=== PATIENT | female | born 1965 | race Caucasian/White ===

== ENCOUNTER 2018-06-12 14:33 | Inpatient (IN) ==
[2018-06-12] MEDS ORDERED: traMADol 50 MG TABLET PO PRN (14:50)
[2018-06-12] MEDS ORDERED: ACETAMINOPHEN 325 MG TABLET PO PRN (14:50)
[2018-06-12] MEDS ORDERED: ONDANSETRON 4 MG/2 ML VIAL IV PRN (14:50)
[2018-06-12] MEDS ORDERED: PROMETHAZINE 25 MG/1 ML VIAL IM PRN (14:50)
[2018-06-12] MEDS: PANTOPRAZOLE 40 MG VIAL IV SCH (17:28)
[2018-06-12] MEDS: DEXTROSE 5% NACL 0.9% 1,000 ML IV SCH (17:28)
[2018-06-12] MEDS: GABAPENTIN 300 MG CAPSULE PO SCH ×2 (18:17→22:13)
[2018-06-12] MEDS ORDERED: CLORAZEPATE 3.75 MG TABLET PO PRN (18:38)
[2018-06-12] MEDS ORDERED: Rizatriptan Benzoate [Maxalt] 10 MG PO PRN (18:38)
[2018-06-12 20:52] LABS: Apearance,Urine CLEAR (Clear); Bilirubin,Urine Negative (Negative); Blood, Urine Negative (Negative); Glucose,Urine (UA) Negative (Negative); Ketones,Urine 20 mg/dL (Negative); Nitrite,Urine Negative (Negative); Protein,Urine Negative; RBC,Urine 1 /HPF (0-4); Squamous Epithelial Cell,Urine Occasional /HPF (0-10); Urine Color Straw (Yellow); Urine Specific Gravity 1.004 (1.001-1.035); Urine Urobilinogen < 2.0 EU/DL (0.2-1.0); WBC,Urine <1 /HPF (0-6)
[2018-06-13] MEDS: DEXTROSE 5% NACL 0.9% 1,000 ML IV SCH ×4 (00:03→18:16)
[2018-06-13 06:03] LABS: Basophils % 0.2 % (0.0-0.8); Eosinophils # 0.1 10*3/uL (0.0-0.87); Eosinophils % 0.6 % (0.00-10.9); Hematocrit 35.2 VOL% (35.7-47.0); Hemoglobin 11.3 GM/DL (12.0-16.0); Immature Granulocytes % 0.6 %; Immature Granulocytes Absolute 0.05 #; Lymphocytes # 2.7 10*3/uL (1.4-4.0); Lymphocytes % 32.8 % (21.3-54.2); Mean Corpuscular HGB Conc 32.1 GM/DL (32-36); Mean Corpuscular Hemoglobin 28 PG (27-34); Mean Corpuscular Volume 88.4 FL (87-102); Mean Platelet Volume 10.1 FL (9.6-12.0); Monocytes # 0.9 10*3/uL (0.11-0.8); NRBC # 0.02 10*3/uL; Neutrophils # 4.4 10*3/uL (1.4-7.4); Neutrophils % 54.8 % (38.7-73.9); Platelet Count 250 T/CUMM (130-400); Red Blood Count 3.98 MC/CUMM (3.8-5.5); Red Cell Distribution Width 14.3 % (9.3-17.3); White Blood Count 8.1 T/CUMM (4-12)
[2018-06-13] MEDS: LEVOTHYROXINE 75 MCG TABLET PO SCH (06:18)
[2018-06-13 06:38] LABS: Alanine Aminotransferase 60 U/L (13-56); Albumin 2.4 G/DL (3.4-5.0); Alkaline Phosphatase 107 U/L (45-117); Aspartate Amino Transferase 41 U/L (0-37); Bilirubin,Direct < 0.100 MG/DL (0.0-0.20); Blood Urea Nitrogen 7 MG/DL (7-18); Calcium 7.1 MG/DL (8.5-10.1); Glucose 92 MG/DL (74-106); Osmolality,Calculated 285.7 MOS/KG (273-304); Potassium 3.4 MMOL/L (3.5-5.1); Sodium 145 MMOL/L (136-145); Total Protein 5.4 G/DL (6.4-8.3)
[2018-06-13] MEDS ORDERED: traMADol 50 MG TABLET PO PRN (08:15)
[2018-06-13] MEDS: PANTOPRAZOLE 40 MG VIAL IV SCH (08:33)
[2018-06-13] MEDS: ESTROGENS (CONJ) 0.625 MG TABLET PO SCH (08:33)
[2018-06-13] MEDS: CITALOPRAM 20 MG TABLET PO SCH (08:33)
[2018-06-13] MEDS: GABAPENTIN 300 MG CAPSULE PO SCH ×3 (08:33→20:36)
[2018-06-13] MEDS: HYDROCORTISONE 100 MG VIAL IV SCH ×2 (08:34→16:22)
[2018-06-13] MEDS: predniSONE 5 MG TABLET PO SCH ×2 (08:35→11:18)
[2018-06-13] MEDS ORDERED: NARATRIPTAN HCL 2.5 MG PO SCH (09:00)
[2018-06-13] MEDS ORDERED: methylPREDNISolone SOD SUC 40 MG/1 ML VIAL IV SCH (09:00)
[2018-06-14] MEDS: DEXTROSE 5% NACL 0.9% 1,000 ML IV SCH ×3 (02:06→21:50)
[2018-06-14] MEDS: HYDROCORTISONE 100 MG VIAL IV SCH ×3 (02:06→16:45)
[2018-06-14 04:52] LABS: Basophils % 0.2 % (0.0-0.8); Eosinophils % 0.2 % (0.00-10.9); Hematocrit 34.9 VOL% (35.7-47.0); Hemoglobin 10.7 GM/DL (12.0-16.0); Immature Granulocytes % 1.5 %; Immature Granulocytes Absolute 0.13 #; Lymphocytes # 2.4 10*3/uL (1.4-4.0); Lymphocytes % 28.1 % (21.3-54.2); Mean Corpuscular HGB Conc 30.7 GM/DL (32-36); Mean Corpuscular Hemoglobin 28 PG (27-34); Mean Corpuscular Volume 90.9 FL (87-102); Mean Platelet Volume 10.2 FL (9.6-12.0); Monocytes # 0.7 10*3/uL (0.11-0.8); Monocytes % 8.1 % (1.7-12.7); Neutrophils # 5.2 10*3/uL (1.4-7.4); Neutrophils % 61.9 % (38.7-73.9); Platelet Count 252 T/CUMM (130-400); Red Blood Count 3.84 MC/CUMM (3.8-5.5); Red Cell Distribution Width 14.1 % (9.3-17.3); White Blood Count 8.4 T/CUMM (4-12)
[2018-06-14 05:14] LABS: Calcium 6.8 MG/DL (8.5-10.1); Osmolality,Calculated 287.6 MOS/KG (273-304); Potassium 2.8 MMOL/L (3.5-5.1)
[2018-06-14] MEDS: LEVOTHYROXINE 75 MCG TABLET PO SCH (06:16)
[2018-06-14] MEDS: POTASSIUM CHLORIDE 20 MEQ TABLET PO PRN (06:37)
[2018-06-14 08:32] LABS: Alanine Aminotransferase 61 U/L (13-56); Albumin 2.3 G/DL (3.4-5.0); Alkaline Phosphatase 97 U/L (45-117); Aspartate Amino Transferase 33 U/L (0-37); Bilirubin,Direct < 0.050 MG/DL (0.0-0.20); Bilirubin,Indirect 0.3 MG/DL (0.0-1.0); Bilirubin,Total < 0.39 MG/DL (0.2-1.0); Total Protein 5.5 G/DL (6.4-8.3)
[2018-06-14] MEDS: PANTOPRAZOLE 40 MG VIAL IV SCH (09:40)
[2018-06-14] MEDS: ESTROGENS (CONJ) 0.625 MG TABLET PO SCH (09:42)
[2018-06-14] MEDS: predniSONE 5 MG TABLET PO SCH ×2 (09:42→12:30)
[2018-06-14] MEDS: GABAPENTIN 300 MG CAPSULE PO SCH ×3 (09:42→20:55)
[2018-06-14] MEDS: CITALOPRAM 20 MG TABLET PO SCH (09:42)
[2018-06-14] MEDS: POTASSIUM CHLORIDE RIDER 10 MEQ in PREMIX 1 EACH IV PRN ×5 (09:43→16:50)
[2018-06-15 00:51] LABS: Calcium 7.1 MG/DL (8.5-10.1); Osmolality,Calculated 288.6 MOS/KG (273-304); Potassium 3.1 MMOL/L (3.5-5.1)
[2018-06-15] MEDS: HYDROCORTISONE 100 MG VIAL IV SCH ×3 (01:51→17:05)
[2018-06-15] MEDS: POTASSIUM CHLORIDE RIDER 10 MEQ in PREMIX 1 EACH IV PRN ×9 (01:54→15:16)
[2018-06-15] MEDS: DEXTROSE 5% NACL 0.9% 1,000 ML IV SCH ×4 (05:50→18:17)
[2018-06-15] MEDS: LEVOTHYROXINE 75 MCG TABLET PO SCH (06:08)
[2018-06-15] MEDS: PANTOPRAZOLE 40 MG VIAL IV SCH (08:59)
[2018-06-15] MEDS: ESTROGENS (CONJ) 0.625 MG TABLET PO SCH (09:03)
[2018-06-15] MEDS: CITALOPRAM 20 MG TABLET PO SCH (09:04)
[2018-06-15] MEDS: GABAPENTIN 300 MG CAPSULE PO SCH ×3 (09:04→21:26)
[2018-06-15] MEDS: predniSONE 5 MG TABLET PO SCH ×2 (09:05→12:06)
[2018-06-15] MEDS: cephALEXin 500 MG CAPSULE PO SCH ×2 (13:41→21:26)
[2018-06-15] MEDS: FLUTICASONE 50 MCG NASAL SPRAY 16 GM BOTTLE BOTH NARES SCH (21:26)
[2018-06-15] MEDS: guaiFENesin/CODEINE 5 ML LIQUID PO SCH (21:26)
[2018-06-16] MEDS: HYDROCORTISONE 100 MG VIAL IV SCH ×2 (01:15→08:24)
[2018-06-16] MEDS: DEXTROSE 5% NACL 0.9% 1,000 ML IV SCH ×2 (02:20→10:02)
[2018-06-16 04:52] LABS: Calcium 7.4 MG/DL (8.5-10.1); Osmolality,Calculated 288.6 MOS/KG (273-304); Potassium 3.4 MMOL/L (3.5-5.1)
[2018-06-16] MEDS: cephALEXin 500 MG CAPSULE PO SCH (06:15)
[2018-06-16] MEDS: LEVOTHYROXINE 75 MCG TABLET PO SCH (06:15)
[2018-06-16] MEDS: PANTOPRAZOLE 40 MG VIAL IV SCH (08:26)
[2018-06-16] MEDS: guaiFENesin/CODEINE 5 ML LIQUID PO SCH (08:29)
[2018-06-16] MEDS: ESTROGENS (CONJ) 0.625 MG TABLET PO SCH (08:30)
[2018-06-16] MEDS: POTASSIUM CHLORIDE 20 MEQ TABLET PO PRN (08:30)
[2018-06-16] MEDS: predniSONE 5 MG TABLET PO SCH (08:30)
[2018-06-16] MEDS: CITALOPRAM 20 MG TABLET PO SCH (08:30)
[2018-06-16] MEDS: FLUTICASONE 50 MCG NASAL SPRAY 16 GM BOTTLE BOTH NARES SCH (08:31)
[2018-06-16] MEDS: GABAPENTIN 300 MG CAPSULE PO SCH (08:31)
[2018-06-16 08:41] VITALS: BP 143/74
[2018-06-16] MEDS ORDERED: CETIRIZINE 10 MG TABLET PO SCH (09:00)
== END 2018-06-16 10:05 | disposition home or self-care (01) | DRG 392 ==
LOC: N.2E
PROVIDERS: ADMIT Family Medicine; ATTEND Internal Medicine